=== PATIENT | male | born 1945 | race Caucasian/White ===

== ENCOUNTER → 2017-04-22 | Outpatient (CLI) | payer OTHER, MEDICARE | LOC: CIMAGING 13:08 | PROVIDERS: ATTEND Family Medicine | DX: S59.911A Unspecified injury of right forearm, initial encounter (principal) | CPT/HCPCS: 73090-PO ==

== ENCOUNTER → 2017-10-01 | Outpatient (CLI) | payer OTHER, MEDICARE ==
[~2017-10-01] MED LIST: GADOBUTROL 10 ML VIAL IVP ONE
== END ==
LOC: FIMAGING 07:45
PROVIDERS: ATTEND Specialist
DX: N40.2 Nodular prostate without lower urinary tract symptoms (principal); R97.20 Elevated prostate specific antigen [PSA]
CPT/HCPCS: 72197; 76377; A9585

== ENCOUNTER → 2018-06-03 | Outpatient (CLI) | payer OTHER, MEDICARE | LOC: FIMAGING 11:46 | PROVIDERS: ATTEND Specialist | DX: N40.0 Benign prostatic hyperplasia without lower urinary tract symptoms (principal); R97.20 Elevated prostate specific antigen [PSA]; K57.30 Diverticulosis of large intestine without perforation or abscess without bleeding | CPT/HCPCS: 72197; 76377; A9585 ==

== ENCOUNTER → 2018-07-07 | Outpatient (CLI) | payer OTHER, MEDICARE | LOC: BHLMT 14:00 | PROVIDERS: ATTEND Internal Medicine Cardiovascular Disease | DX: R06.02 Shortness of breath (principal) | CPT/HCPCS: 93306-PO ==

== ENCOUNTER → 2018-08-01 | Outpatient (CLI) | payer OTHER, MEDICARE ==
[~2018-08-01] MED LIST changes: -GADOBUTROL 10 ML VIAL IVP ONE; +IOPAMIDOL (ISOVUE-370) 150 ML BTL IV ONE
== END ==
LOC: CIMAGING 09:58
PROVIDERS: ATTEND Internal Medicine Cardiovascular Disease
DX: I73.9 Peripheral vascular disease, unspecified (principal)
CPT/HCPCS: 71275; Q9967; 82565-PO